=== PATIENT | male | born 1945 | race Caucasian/White ===

== ENCOUNTER 2020-04-22 10:59 | Outpatient (REF) | payer MEDICARE, OTHER, SELFPAY ==
[2020-04-22 13:38] LABS: Estimated Average Glucose 171 mg/dL; Hemoglobin A1c % 7.6 %
== END 2020-04-22 11:00 | disposition home or self-care (01) ==
LOC: HO.MANLR 10:59
PROVIDERS: PCP Internal Medicine; Visit Provider Internal Medicine
DX: E11.9 Type 2 diabetes mellitus without complications (principal)
CPT/HCPCS: 83036

== ENCOUNTER 2020-07-19 15:53 | Outpatient (REF) | payer MEDICARE, OTHER, SELFPAY ==
[2020-07-19 18:11] LABS: Estimated Average Glucose 189 mg/dL; Hemoglobin A1c % 8.2 %
== END 2020-07-19 15:54 | disposition home or self-care (01) ==
LOC: HO.MANLR 15:53
PROVIDERS: PCP Internal Medicine; Visit Provider Internal Medicine
DX: E11.9 Type 2 diabetes mellitus without complications (principal)
CPT/HCPCS: 36415; 83036

== ENCOUNTER 2020-10-05 09:18 | Outpatient (REF) | payer MEDICARE, OTHER, SELFPAY ==
[2020-10-05 12:04] LABS: Alanine Aminotransferase 19 U/L (0-40); Albumin Level 4.3 g/dL (3.5-5.0); Alkaline Phosphatase 43 U/L (39-117); Anion Gap 13 (12-20); Aspartate Amino Transferase 15 U/L (5-37); Bilirubin Total 1.1 mg/dL (0.0-1.0); Blood Urea Nitrogen 17 mg/dL (9-16); Calcium 9.7 mg/dL (8.4-10.2); Carbon Dioxide 27 mmol/L (22-29); Chloride 104 mmol/L (96-108); Cholesterol 136 mg/dL; Estimated Glomerular Filt Rate > 60; Glucose Fasting 151 mg/dL (60-99); HDL Cholesterol 45 mg/dL; LDL Cholesterol Calculated 74 mg/dl; Potassium 4.1 mmol/L (3.3-5.1); Sodium 140 mmol/L (135-145); Total Protein 6.4 g/dL (6.5-8.0); Triglycerides 85 mg/dL
[2020-10-05 12:08] LABS: Estimated Average Glucose 154 mg/dL
[2020-10-05 12:20] LABS: Creatinine Urine 76.62 mg/dL; Microalbum/Creatinine Ratio Ur 28.7 ug/mg cr
== END 2020-10-05 09:19 | disposition home or self-care (01) ==
LOC: HO.MANLDS 09:18
PROVIDERS: PCP Internal Medicine; Visit Provider Internal Medicine
DX: E11.9 Type 2 diabetes mellitus without complications (principal)
CPT/HCPCS: 36415; 80053; 80061; 82043; 83036

== ENCOUNTER 2021-07-21 11:39 | Outpatient (REF) | payer MEDICARE, OTHER, SELFPAY ==
[2021-07-21 13:54] LABS: Estimated Average Glucose 154 mg/dL
== END 2021-07-21 11:40 | disposition home or self-care (01) ==
LOC: HO.MANLDS 11:39
PROVIDERS: PCP Internal Medicine; Visit Provider Internal Medicine
DX: E11.9 Type 2 diabetes mellitus without complications (principal)
CPT/HCPCS: 36415; 83036

== ENCOUNTER 2021-10-23 11:34 | Outpatient (REF) | payer MEDICARE, OTHER, SELFPAY ==
[2021-10-23 14:17] LABS: Estimated Average Glucose 151 mg/dL; Hemoglobin A1c % 6.9 %
== END 2021-10-23 11:35 | disposition home or self-care (01) ==
LOC: HO.MANLDS 11:34
PROVIDERS: Visit Provider Internal Medicine
DX: E11.9 Type 2 diabetes mellitus without complications (principal)
CPT/HCPCS: 36415; 83036

== ENCOUNTER 2022-04-04 14:10 | Outpatient (REF) | payer MEDICARE, OTHER, SELFPAY ==
[2022-04-04 18:52] LABS: Estimated Average Glucose 151 mg/dL; Hemoglobin A1c % 6.9 %
[2022-04-04 18:56] LABS: Alanine Aminotransferase 15 U/L (0-40); Albumin Level 4.3 g/dL (3.5-5.0); Alkaline Phosphatase 59 U/L (39-117); Anion Gap 13 (12-20); Aspartate Amino Transferase 15 U/L (5-37); Bilirubin Total 0.8 mg/dL (0.0-1.0); Blood Urea Nitrogen 14 mg/dL (9-16); Carbon Dioxide 29 mmol/L (22-29); Chloride 104 mmol/L (96-108); Cholesterol 135 mg/dL; Estimated Glomerular Filt Rate > 60; Glucose Random 123 mg/dL (60-115); HDL Cholesterol 38 mg/dL; LDL Cholesterol Calculated 60 mg/dl; Potassium 4.6 mmol/L (3.3-5.1); Sodium 141 mmol/L (135-145); Total Protein 6.7 g/dL (6.5-8.0); Triglycerides 185 mg/dL
== END 2022-04-04 14:11 | disposition home or self-care (01) ==
LOC: HO.MANLDS 14:10
PROVIDERS: Visit Provider Internal Medicine
DX: E11.9 Type 2 diabetes mellitus without complications (principal)
CPT/HCPCS: 36415; 80053; 80061; 83036

== ENCOUNTER 2022-07-18 11:47 | Outpatient (REF) | payer MEDICARE, OTHER, SELFPAY ==
[2022-07-18 14:31] LABS: Estimated Average Glucose 163 mg/dL; Hemoglobin A1c % 7.3 %
== END 2022-07-18 11:48 | disposition home or self-care (01) ==
LOC: HO.MANLDS 11:47
PROVIDERS: Visit Provider Internal Medicine
DX: E11.9 Type 2 diabetes mellitus without complications (principal)
CPT/HCPCS: 36415; 83036

== ENCOUNTER 2023-01-04 11:14 | Outpatient (REF) | payer MEDICARE, OTHER, SELFPAY ==
[2023-01-04 13:56] LABS: Estimated Average Glucose 154 mg/dL
[2023-01-04 14:12] LABS: Alanine Aminotransferase 21 U/L (0-40); Albumin Level 4.1 g/dL (3.5-5.0); Alkaline Phosphatase 57 U/L (39-117); Anion Gap 15 (12-20); Aspartate Amino Transferase 15 U/L (5-37); Blood Urea Nitrogen 16 mg/dL (9-16); Calcium 9.9 mg/dL (8.4-10.2); Carbon Dioxide 29 mmol/L (22-29); Chloride 104 mmol/L (96-108); Estimated Glomerular Filt Rate > 60; Glucose Random 174 mg/dL (60-115); Potassium 4.5 mmol/L (3.3-5.1); Sodium 143 mmol/L (135-145); Total Protein 6.8 g/dL (6.5-8.0)
[2023-01-04 14:31] LABS: Bilirubin Total 0.8 mg/dL (0.0-1.0)
== END 2023-01-04 11:15 | disposition home or self-care (01) ==
LOC: HO.MANLDS 11:14
PROVIDERS: Visit Provider Internal Medicine
DX: E11.9 Type 2 diabetes mellitus without complications (principal)
CPT/HCPCS: 36415; 80053; 83036

== ENCOUNTER 2023-04-26 10:15 | Outpatient (REF) | payer MEDICARE, OTHER, SELFPAY ==
[2023-04-26 13:48] LABS: Estimated Average Glucose 160 mg/dL; Hemoglobin A1c % 7.2 % (<6.0)
[2023-04-26 13:59] LABS: Alanine Aminotransferase 22 U/L (0-40); Albumin Level 4.2 g/dL (3.5-5.0); Alkaline Phosphatase 52 U/L (39-117); Anion Gap 12 (12-20); Aspartate Amino Transferase 18 U/L (5-37); Bilirubin Total 0.9 mg/dL (0.0-1.0); Blood Urea Nitrogen 18 mg/dL (9-16); Calcium 9.7 mg/dL (8.4-10.2); Carbon Dioxide 26 mmol/L (22-29); Chloride 108 mmol/L (96-108); Cholesterol 136 mg/dL (<200); Estimated Glomerular Filt Rate > 60; Glucose Random 149 mg/dL (60-115); HDL Cholesterol 42 mg/dL (>40); LDL Cholesterol Calculated 76 mg/dL (<100); Potassium 3.9 mmol/L (3.3-5.1); Sodium 142 mmol/L (135-145); Total Protein 6.9 g/dL (6.5-8.0); Triglycerides 91 mg/dL (<150)
== END 2023-04-26 10:16 | disposition home or self-care (01) ==
LOC: HO.MANLDS 10:15
PROVIDERS: Visit Provider Internal Medicine
DX: E11.9 Type 2 diabetes mellitus without complications (principal)
CPT/HCPCS: 36415; 80053; 80061; 83036

== ENCOUNTER 2023-10-01 10:17 | Outpatient (REF) | payer MEDICARE, OTHER, SELFPAY ==
[2023-10-01 13:41] LABS: Estimated Average Glucose 160 mg/dL; Hemoglobin A1c % 7.2 % (<6.0)
== END 2023-10-01 10:18 | disposition home or self-care (01) ==
LOC: HO.MANLDS 10:17
PROVIDERS: Visit Provider Internal Medicine
DX: E11.9 Type 2 diabetes mellitus without complications (principal)
CPT/HCPCS: 36415; 83036

== ENCOUNTER 2025-01-27 19:19 | Outpatient (REF) | payer MEDICARE, OTHER, SELFPAY ==
--- OUTSIDE RECORDS SUMMARY | 2025-01-27 19:21 | XMS_ITS | Encounter Summary ---
Author Organization [facility] Address [address] [place] [address] [address] [place] [phone] Phone Care Team Providers Care Carbon Capture Power Plant Engineer Name Role Phone Pio Hendrickson DO Primary Care Provider [phone] Pio Hendrickson DO Primary Care Provider [phone] Encounter Details Date Type Department Care Team (Late st Contact Info) Description 08/11/2018 Procedure Pass OR Admitting Dept - Virtual Department [address] [place] [address] Social History Tobacco Use Types Packs/Day Years Used Date Smoking Tobacco: Former Cigarettes Q uit: 08/26/1980 Smokeless Tobacco: Never Comments:previously smoked 2 packs daily Alcohol Use Standard Drinks/Week Comments Yes 0 (1 standard drink = 0.6 oz pur e alcohol) rare beer Sex and Gender Information Value Date Recorded Sex Assigned at Male 08/26/2017 11:31 AM EDT Legal Sex Male 10:09 PM EDT Gender Identity Male 08/26/2017 11:31 AM EDT Sexual Orientation Straight 08/26/2017 11 :31 AM EDT Occupation Industry Job Start Date Job End Date Retired, 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 on file Not on ivory e Not on file documented as of this encounter Plan of Treatment Not on file documented as of this encounter Visit Diagnoses Not on filedocumented in this encounter Care Teams Carbon Capture Power Plant Engineer Relationship Specialty Start Date End Date Pio Hendrickson DO PCP - General Internal Medicine 4/9/18 8/20/25 Pio Hendrickson DO [address] [place] [address] [email or web address] PCP - General Internal Medicine 01/07/25 documented as of this encounter Additional Source Comments The information contained in this document represents components of the legal health record. It is not the complete legal health record.[facility]
--- OUTSIDE RECORDS SUMMARY | 2025-01-27 19:21 | XMS_ITS | Encounter Summary ---
Author Organization [facility] Address [address] [place] [address] Phone Care Team Providers Care Electronic Components Assembler Name Role Phone ClementPio amado Primary Care Provider [phone] Clementaneudy Pio Bhavni Primary Care Provider [phone] Reason for Referral * Outpatient Procedure - Closed Specialty Diagnoses / Procedures Referred By Michelle rollins Referred To Contact Diagnoses Atrial fibrillation, unspecified type Procedures MCT (Mobile Cardiac Telemetry) Deshaun Vogt MD Phone: tel: fax: Referral ID Status Reason Start Date Expiration Date Visits Re quested Visits Authorized [id number] Closed 01/30/2018 01/30/2019 1 1 Encounter Details Date Type Department Care Team (Latest Contact Info) Description 01/30/2018 Ancillary Orders [facility] [address] [facility] 3rd Floor, [address] [place] [address] Deshaun Vogt MD [address] [place] [address] Atrial fibrillation, unspecified type Social History Tobacco Use Types Packs/Day Years [...] Date Job End Date Retired, 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 Not on ivory e Not on file documented as of this encounter Plan of Treatment Not on file documented as of this encounter Results * MCT (Mobile Cardiac Telemetry) (01/28/2018 9:18 AM EDT) Anatomical Region Laterality Modality Heart Other Narrative 01/30/2018 2:20 PM EDT External cardiac ambulatory telemetry report Total time order 6 hours 12 minutes Average heart rate is 70 bpm Minimal heart rate 59 bpm Maximum heart rate 119 bpm in sinus tachycardia No atrial for ablation, atrial flutter or SVT No ventricular arrhythmias or heart pauses Occasional PACs and PVCs No patient activation of symptoms us Deshaun Vogt MD [facility] Final Result documented in this encounter Visit Diagnoses Diagnosis Atrial fibrillation, unspecified type Atrial fibrillation, unspecified type documented in this encounter Care Teams Electronic Components Assembler Relationship Specialty Start Date End Date Pio Hendrickson DO PCP - General Internal Medicine 08/26/17 01/06/25 Pio Hendrickson DO [address] [place] [id number] PCP - General Internal Medicine 01/07/25 documented as of this encounter Additional Source Comments The information contained in this document represents components of the legal health record. It is not the complete legal health record.[facility]
--- OUTSIDE RECORDS SUMMARY | 2025-01-27 19:22 | XMS_ITS | Clinical Summary ---
Author Organization [address] [place] [address] [place] [phone] Phone Care Team Providers Care Advertising Internship Name Role Phone Pio Hendrickson DO Primary Care Provider [phone] Allergies No known active allergies Medications exenatide microspheres 2 mg/0.85 mL auto-injector injection Inject into the skin. Active empagliflozin (Jardiance) 10 mg tablet Take by mouth 1 (one) time each day. Active MULTIVITAMIN ORAL 1 (one) time each day. Active L. rhamnosus GG/inulin ([facility] ORAL) Take by mouth 1 (one) time each day. Active aspirin 81 mg EC tablet Take 81 mg by mouth daily. 0 Active simvastatin (ZOCOR) 10 mg tablet Take 10 mg by mouth daily. 0 Active Eliquis 5 mg tablet TAKE 1 TABLET BY MOUTH TWICE A DAY 180 tablet 2 4 Active lisinopriL (PRINIVIL,ZESTRIL ) 2.5 mg tablet TAKE 1 TABLET BY MOUTH EVERY DAY 90 tablet 3 5 Active metoprolol succinate (TOPROL-XL) 100 mg 24 hr tablet TAKE 1.5 TABLETS BY MOUTH EVERY DAY 135 tablet 1 5 Active Active Problems Problem Noted Date Diagnosed Date Atrial fibrillation (CMS/HCC V24, CMS/HCC V28) 0 10/28/2020 Overview (02/18/2024): Last Assessment & Plan: Patient with a recent episode of atrial fibrillation lasting 1 hour and 45 minutes he was asymptomatic and occurred early in the morning may be sleep apnea associated patient remains chronically anticoagulated Assessment & Plan (08/19/2024 12:30 PM EDT): He has history of paroxysmal atrial fibrillation and continues on Eliquis for anticoagulation. We will continue with monitoring his device. Cardiomyopathy (CMS/HCC V24, CMS/HCC V28) 2020 Overview (02/18/2024): Last Assessment & Plan: Patient with a previous history of cardiomyopathy. Last EF on MRI 45% with no infiltrative myocarditis and no significant coronary disease other than the right coronary artery issue which cannot be approached by angioplasty secondary to his tortuosity. And small nature of the vessel continue present therapy Assessment & Plan (08/19/2024 12:30 PM EDT): Patient has history of cardiomyopathy with an EF of 35% in the past. He has a Medtronic MRI compatible biventricular ICD in place. He had a cardiac MRI in 2019 which showed an EF of 45% with no infiltrative disease. His last echocardiogram 08/2022 showed recovery of his LVEF to 55 to 60%. He continues on medical therapy and denies any clinical symptoms of heart failure. He is euvolemic on physical examination. He will continue on metoprolol, low-dose of lisinopril and Jardiance as prescribed. His blood pressure does not allow for any further medication titration. Patient advised to seek emergency medical attention by calling 911 if they were to develop severe dyspnea, chest pain that did not resolve with rest or nitroglycerin, or if they were to faint. I've asked the patient to call if they develop worsening symptoms of heart failure such as increased shortness of breath, new or worsening cough, increased swelling in the legs or ankles, or weight gain of more than 2 pounds in one day or 4 pounds in one week. Coronary artery disease 10/28/2020 Overview (02/18/2024): Last Assessment & Plan: Patient with a history of episodic coronary disease residual 80% lesion and a small right coronary artery which is cause no issues since the diagnostic catheterization in 2019. Patient will continue on risk factor modification. Assessment & Plan (08/19/2024 12:30 PM EDT): Patient has history of mild coronary artery disease as outlined in detailed and his coronary angiogram completed in 2019. Denies any exertional anginal symptoms. He continues on cardioprotective medical therapy with aspirin, beta-concetta and statin. I have reviewed with the patient the importance of a heart healthy lifestyle which includes eating a low-fat low-salt diet, getting regular exercise, maintaining a healthy weight, not smoking, and following up with routine medical care. Ventricular tachycardia (CMS/HCC V24, CMS/HCC V2 8) 10/28/2020 Overview (02/18/2024): Last Assessment & Plan: No further episodes of ventricular tachycardia identified on interrogation of his ICD Assessment & Plan (08/19/2024 12:30 PM EDT): Patient has history of nonsustained ventricular tachycardia captured on device monitoring in the past. No recent episodes noted. He continues on metoprolol. Encounters Date Type Department Care Team Description 01/19/2025 10:15 AM EDT Ancillary Procedure [facility] [address] [place] [address] 12/17/2024 2:15 AM EDT Ancillary Procedure [facility] [address] [place] [address] 11/23/2024 7:10 AM EDT Ancillary Procedure [facility] [address] [place] [address] from Last 3 Months Social History Tobacco Use Types Packs/Day Years Used Date Smoking Tobacco: Former Cigarettes Q uit: 05/20/1980 Smokeless Tobacco: Never Tobacco Cessation:Counseling Given: Not Answered Alcohol Use Standard Drinks/Week Comments Yes 0 (1 standard drink = 0.6 oz pur e alcohol) Sex and Gender Information Value Date Recorded Sex Assigned at Not on file Legal Sex Male 11:10 AM EST Gender Identity Not on file Sexual Orientation Not on file Obstetrics History Last Filed Vital Signs Vital Sign Reading Time Taken Comments Blood Pressure 102/60 08/19/2024 10:53 AM EDT Pulse 72 08/19/2024 10:53 AM EDT Temperature - - Respiratory Rate - - Oxygen Saturation 97% 08/19/2024 10:53 AM EDT Inhaled Oxygen Concentration - - Weight 78.2 kg (172 lb 4.8 oz) 08/19/2024 10:53 AM EDT Height 175.3 cm (5' 9 ) 08/19/2024 10:53 AM EDT Body Mass Index 25.44 08/19/2024 10:53 AM EDT Plan of Treatment Upcoming Encounters Date Type Department Care Team (Late st Contact Info) Description 03/29/2025 9:30 AM EST Ancillary Procedure [facility] [address] [place] [phone] 05/07/2025 10:40 AM EST Office Visit [facility] [address] [place] [address] [address] [place] [phone] Katerina Chan NP [address] [place] [address] [address] [place] [phone] Health Maintenance Due Date Last Done Comments Diabetes: Annual Foot Exam 1955 Diabetes: Annual Retina Eye Exam 1955 DTaP,Tdap,and Td Vaccines (1 - Tdap) 1963 Zoster Vaccines (1 of 2) 1963 RSV Immunization Adult Patients (1 - 1-dose 75+ series) 2019 Pneumococcal Vaccine: 50+ Years (2 of 2 - PPSV23) 06/22/2020 04/27/2020 Falls Risk Assessment 04/28/2022 Medicare Annual Wellness Visit 04/28/2022 Social Influencers of Health Screening 04/28/2022 Diabetes: Annual Urine Albumin-Creatinine Ratio (uACR) 03/26/2024 07/03/2018 Diabetes: Blood Sugar Control Test (HGBA1C) 03/26/2024 Depression Screening 05/20/2024 Diabetes: Annual GFR (Glomerular Filtration Rate) 01/12/2025 01/13/2024, 02/18/2020, 12/10/2017 Hypertension/CHF/CAD Annual BMP Blood Test 01/12/2025 01/13/2024, 02/18/2020, 12/10/2017 COVID-19 Vaccine ( season) 2025 03/22/2022, 03/24/2021, 08/10/2020, Additional history exists Influenza Vaccine (#1) 2025 , 03/27/2023, 02/26/2022, Additional history exists Cholesterol Screening (Lipid Panel) 01/12/2029 01/13/2024 HIB Vaccines Aged Out No longer eligi ble based on patient's age to complete this topic HPV Vaccines Aged Out No longer eligi ble based on patient's age to complete this topic Hepatitis A Vaccines Aged Out No long er eligible based on patient's age to complete this topic Hepatitis B Vaccines Aged Out No long er eligible based on patient's age to complete this topic IPV Vaccines Aged Out No longer eligi ble based on patient's age to complete this topic MMR Vaccines Aged Out No longer eligi ble based on patient's age to complete this topic Meningococcal ACWY Vaccine Aged Out N o longer eligible based on patient's age to complete this topic Meningococcal B Vaccine Aged Out No l onger eligible based on patient's age to complete this topic RSV Immunization Patients Under 20 months Aged Out No longer eligible based on patient's age to complete this topic Varicella Vaccines Aged Out No longer eligible based on patient's age to complete this topic Medical Devices Implanted Type Area Senior Program Manager Device Identifier Shelf Expiration Date Model / Serial / Lot Cardiac Parlor Chaperone-D Icd-04/01/2020 Implanted:03/20 by Elizabeth Ching MD (Quantity not on file) Cardiac SHREDDER OPERATOR-D ICD Left: Chest MEDTR[employer]IC - CARDIAC RHYTH-CRDM CLARIA QUAD [id number] / [id number] S / Medt-Card Claria Mri Quad Crtd [id number] Implanted:03/20 (Quantity not on file) Cardiac SHREDDER OPERATOR-D ICD MEDTRONIC - CARDIAC RHYTH-CRDM CLARIA MRI QUAD CRTD [id number] / [id number] S / Procedures Procedure Name Priority Date/Time Associated Diagnosis Comments CARDIAC DEVICE CHECK- REMOTE- MURJ Routine 01/19/2025 10:14 AM EDT CARDIAC DEVICE CHECK- REMOTE- MURJ Routine 12/17/2024 2:11 AM EDT CARDIAC DEVICE CHECK- REMOTE- MURJ Routine 11/23/2024 7:08 AM EDT ANNUAL BMP BLOOD TEST Routine 02/18/2020 from Last 3 Months or Most Recently Relevant to Health Maintenance Results * Cardiac device check - Remote- MURJ (01/19/2025 10:14 AM EDT) Only the most recent of3 resultswithin the time period is included. Date Time Interrogation Session [id number] CV DEVICE CHECK Type Interrogation Session Remote CV DEVICE CHECK Implantable Pulse Generator Senior Program Manager MDT CV DEVICE CHECK Implantable Pulse Generator Type SHREDDER OPERATOR-D CV DEVICE CHECK Implantable Pulse Generator Model Claria MRI Quad CRTD [id number] CV DEVICE CHECK Implantable Pulse Generator Serial Number [id number] CV DEVICE CHECK Implantable Pulse Generator Implant Date 20200401 CV DEVICE CHECK Battery Remaining Longevity 25.0 CV DEVICE CHECK Battery Voltage 2.930 CV D EVICE CHECK Battery PROCESS STRIPPER Trigger 2.727 CV DEVICE CHECK Battery Status Middle of Service CV DEVICE CHECK Capacitor Charge Time 4.314 CV DEVICE CHECK Edgar Statistic RA Percent Paced 3.65 CV DEVICE CHECK Atrial Tachy Statistic AT/AF [place] Percent 0.00 CV DEVICE CHECK Lead Channel Sensing Intrinsic Amplitude 3.875 CV DEVICE CHECK Lead Channel Setting Sensing Sensitivity 0.30 CV DEVICE CHECK Lead Channel Impedance Value 475 CV DEVICE CHECK Lead Channel Pacing Threshold Amplitude 1.000 CV DEVICE CHECK Lead Channel Pacing Threshold Pulse Width 0.4 CV DEVICE CHECK Lead Channel RA Pacing Threshold Date 2025-01-12 CV DEVICE CHECK Lead Channel Setting Pacing Amplitude 2.000 CV DEVICE CHECK Lead Channel Setting Pacing Pulse Width 0.4 CV DEVICE CHECK Lead Channel Sensing Intrinsic Amplitude 7.625 CV DEVICE CHECK Lead Channel Setting Sensing Sensitivity 0.30 CV DEVICE CHECK Lead Channel Impedance Value 399 CV DEVICE CHECK Lead Channel Pacing Threshold Amplitude 0.875 CV DEVICE CHECK Lead Channel Pacing Threshold Pulse Width 0.4 CV DEVICE CHECK Lead Channel RV Pacing Threshold Date 2025-01-12 CV DEVICE CHECK Lead Channel Setting Pacing Amplitude 2.000 CV DEVICE CHECK Lead Channel Setting Pacing Pulse Width 0.4 CV DEVICE CHECK Lead Channel Impedance Value 608 CV DEVICE CHECK Lead Channel Pacing Threshold Amplitude 1.625 CV DEVICE CHECK Lead Channel Pacing Threshold Pulse Width 0.4 CV DEVICE CHECK Lead Channel Pacing Threshold Date 2025-01-12 CV DEVICE CHECK Lead Channel Setting Pacing Amplitude 2.250 CV DEVICE CHECK Lead Channel Setting Pacing Pulse Width 0.4 CV DEVICE CHECK Edgar Setting Mode (NBG Code) DDD CV DEVICE CHECK Ventricular chambers paced during SHREDDER OPERATOR pacing. BiV CV DEVICE CHECK Edgar Setting Lower Rate Limit 60 CV DEVICE CHECK Edgar Setting AT Mode Switch Rate 171 CV DEVICE CHECK Edgar Setting Maximum Tracking Rate 130 CV DEVICE CHECK Edgar Setting Maximum Sensor Rate 120 CV DEVICE CHECK Edgar Setting PAV Delay 170 CV DEVICE CHECK Edgar Setting DOMINGO Delay 140 CV DEVICE CHECK SHREDDER OPERATOR LV-RV Delay 0 CV D EVICE CHECK Therapy Statistic Recent Shocks Delivered 0 CV DEVICE CHECK Therapy Statistic Recent Shocks Aborted 0 CV DEVICE CHECK Therapy Statistic Recent ATP Delivered 0 CV DEVICE CHECK RV HV Impedance 73 CV D EVICE CHECK Zone Setting Type Category AT/AF CV DEVICE CHECK Rate 171 CV DEVICE CHECK Therapies All Rx Off CV DEVICE CHECK Zone Setting Status Monitor CV DEVICE CHECK Zone ID 2 CV DEVICE CHECK Zone Setting Type Category VF CV DEVICE CHECK Rate 200 CV DEVICE CHECK Therapies ATP During Charging, 35Jx6 CV DEVICE CHECK Zone Setting Status On CV DEVICE CHECK Zone ID 3 CV DEVICE CHECK Zone Setting Type Category VT CV DEVICE CHECK Zone Setting Status Off CV DEVICE CHECK Zone ID 4 CV DEVICE CHECK Zone Setting Type Category VT CV DEVICE CHECK Zone Setting Status Off CV DEVICE CHECK Zone ID 5 CV DEVICE CHECK Zone Setting Type Category VT CV DEVICE CHECK Rate 150 CV DEVICE CHECK Rate 167 CV DEVICE CHECK Zone Setting Status ENABLED CV DEVICE CHECK Zone ID 6 CV DEVICE CHECK Date of Service 2025-01-17 CV DEVICE CHECK Anatomical Region Laterality Modality Device Interroga tion 01/13/2025 12:1 7 AM EDT Impressions 01/19/2025 10:03 AM EDT Heart Failure Diagnostic: Stable * Heart failure diagnostics assessed through the device * Status: Stable * No overt HF present Narrative Procedure Note Elizabeth Ching MD - 01/19/2025 IMPRESSION: Heart Failure Diagnostic: Stable * Heart failure diagnostics assessed through the device * Status: Stable * No overt HF present Elizabeth Ching MD CV IMPLANTABLE CARDIAC DEV ICE PROCEDURES Final Result * Annual BMP Blood Test (02/18/2020) Annual BMP Blood Test abstracted Historical Provider HEALTH MAINTENANCE Final Result from Last 3 Months or Most Recently Relevant to Health Maintenance Insurance MEDICARE [facility] Care Teams Advertising Internship Relationship Specialty Start Date End Date Pio Hendrickson DO [address] [facility] [address] [place], [place] PCP - General Internal Medicine 04/10/20
--- OUTSIDE RECORDS SUMMARY | 2025-01-27 19:22 | XMS_ITS | Encounter Summary ---
Author Organization [facility] Address [address] [place] [address] Phone Care Team Providers Care Asp Net Mvc Developer Name Role Phone Pio Hendrickson DO Primary Care Provider [phone] Pio Hendrickson DO Primary Care Provider [phone] Encounter Details Date Type Department Care Team ([facility] st Contact Info) Description 04/09/2022 Transcribe Orders Virtual Department [address] [place] [address] Pio Hendrickson DO [address] [facility] [place] [address] [place] [address] Other acquired deformities of right foot (Primary Dx) Social History Tobacco Use Types Packs/Day Years Used Date Smoking Tobacco: Former Cigarettes 2 24 0 08/26/1956 - 08/26/1980 Smokeless Tobacco: Never Comments:previously smoked 2 packs daily Alcohol Use Standard Drinks/Week Comments Not Currently 0 (1 standard drink = 0.6 oz pur e alcohol) 1 drink a month at most Sex and Gender Information Value Date Recorded Sex Assigned at Male 08/26/2017 11:31 AM EDT Legal Sex Male 10:09 PM EDT Gender Identity Male 08/26/2017 11:31 AM EDT Sexual Orientation Straight 08/26/2017 11 :31 AM EDT Occupation Industry Job Start Date Job End Date Retired, 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 No acute osseous abnormality. Narrative 04/24/2022 5:41 PM EST XR FOOT 3 OR MORE VIEWS (RIGHT) COMPARISON: No relevant comparison. FINDINGS: No fracture or dislocation. Hammertoe deformity of the second through fifth digits, limiting assessment on nonweightbearing views. Mild scattered degenerative change. Vascular calcifications. Distal Achilles enthesopathy and plantar calcaneal spur. Procedure Note Amadou Gandara MD - 04/24/2022 XR FOOT 3 OR MORE VIEWS (RIGHT) COMPARISON: No relevant comparison. FINDINGS: No fracture or dislocation. Hammertoe deformity of the second throughfifth digits, limiting assessment on nonweightbearing views. Mildscattered degenerative change. Vascular calcifications. Distal Achillesenthesopathy and plantar calcaneal spur. IMPRESSION: Multiple chronic findings, as described. No acute osseous abnormality. Pio Hendrickson DO IMG XR LOWER EXTREMITY Final Res ult documented in this encounter Visit Diagnoses Diagnosis Other acquired deformities of right foot- Primary Other acquired deformities of right foot documented in this encounter Care Teams Asp Net Mvc Developer Relationship Specialty Start Date End Date Pio Hendrickson DO [email or web address] PCP - General Internal Medicine 08/26/17 01/06/25 Pio Hendrickson DO [address] [place] [address] [email or web address] PCP - General Internal Medicine 01/07/25 documented as of this encounter Additional Source Comments The information contained in this document represents components of the legal health record. It is not the complete legal health record.[facility]
--- OUTSIDE RECORDS SUMMARY | 2025-01-27 19:22 | XMS_ITS | Encounter Summary ---
Author Organization [facility] Address [address] [place] [address] Phone Care Team Providers Care Grinding Machine Operator Automatic Name Role Phone ClementPio amado Primary Care Provider [phone] ClementPio amado Primary Care Provider [phone] Encounter Details Date Type Department Care Team (Late st Contact Info) Description 01/04/2025 Procedure Pass [facility], Ct Scan - [facility] [address] [place] [address] Social History Tobacco Use Types Packs/Day Years Used Date Smoking Tobacco: Former Cigarettes 2 24 0 08/26/1956 - 08/26/1980 Smokeless Tobacco: Never Comments:previously smoked 2 packs daily Alcohol Use Standard Drinks/Week Comments Not Currently 0 (1 standard drink = 0.6 oz pur e alcohol) 1 drink a month at most Education Answer Date Recorded Are you interested in more education? Not on ivory e 09/14/2022 Are you concerned about learning? Not on file 09/14/2022 No 09/14/2022 No 09/14/2022 Digital Access Answer Date Recorded No 10/13/2022 No 10/13/2022 No 10/13/2022 Reliable internet access at home? Not on file 10/13/2022 Device with a working camera? Not on file Intimate Partner Violence Answer Date R ecorded Are you denied basic needs s uch as food, clothing, or medical care? No 01/04/2025 In the past 12 months have y ou been in a relationship with a person who hurts, threatens, or tries to control you? No 01/04/2025 Are you denied basic needs s uch as food, clothing, or medical care? No 01/04/2025 In the past 12 months have y ou been in a relationship with a person who hurts, threatens, or tries to control you? 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 Wish to be (Past 1 Month) No 01/04/2025 11:42 AM EDT Cammie Shepherd RN 2. Non-Specific Active Suici tin Thoughts (Past 1 Month) No 01/04/2025 11:42 AM EDT Yumiko Shepherd cia, RN 6. Suicidal Behavior (Lifetime) No 11:42 AM Cammie Bernardo RN documented as of this encounter Plan of Treatment Not on file documented as of this encounter Visit Diagnoses Not on filedocumented in this encounter Care Teams Grinding Machine Operator Automatic Relationship Specialty Start Date End Date Pio Hendrickson DO PCP - General Internal Medicine 08/26/17 01/06/25 Pio Hendrickson DO [address] [place] [address] PCP - General Internal Medicine 01/07/25 documented as of this encounter Additional Source Comments The information contained in this document represents components of the legal health record. It is not the complete legal health record.[facility]
--- OUTSIDE RECORDS SUMMARY | 2025-01-27 19:22 | XMS_ITS | Encounter Summary ---
Author Organization [facility] Address [address] [place] [phone] Phone Care Team Providers Care Pocket Creaser Name Role Phone Pio Hendrickson DO Primary Care Provider [phone] Pio Hendrickson DO Primary Care Provider [phone] Encounter Details Date Type Department Care Team (Late st Contact Info) Description 12/20/2021 Transcribe Orders Virtual Department [address] [place] [address] Pio Hendrickson DO [address] [facility] [place] [address] [place] [address] [email or web address] Right shoulder pain, unspecified chronicity (Primary Dx) Social History Tobacco Use Types [...] Date Job End Date Retired, 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 Mild to moderate degenerative changes at the acromioclavicular joint. Narrative 12/21/2021 4:57 PM EDT XR SHOULDER 2 OR MORE VIEWS (RIGHT) COMPARISON: There are no prior studies available for comparison FINDINGS: No fracture. There is mild glenohumeral joint space narrowing with osteophyte formation. Mild to moderate degenerative changes at the acromioclavicular articulation. The humeral head continues to articulate normally with the glenoid. Procedure Note Shefali Youssef MD - 12/21/2021 XR SHOULDER 2 OR MORE VIEWS (RIGHT) COMPARISON: There are no prior studies available for comparison FINDINGS: No fracture. There is mild glenohumeral joint space narrowing withosteophyte formation. Mild to moderate degenerative changes at theacromioclavicular articulation. The humeral head continues to articulatenormally with the glenoid. 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 Mild to moderate degenerativechanges at the acromioclavicular joint. Pio Hendrickson DO IMG XR UPPER EXTREMITY Final Res ult documented in this encounter Visit Diagnoses Diagnosis Right shoulder pain, unspecified chronicity- Primary Right shoulder pain, unspecified chronicity documented in this encounter Care Teams Pocket Creaser Relationship Specialty Start Date End Date Pio Hendrickson DO PCP - General Internal Medicine 08/26/17 01/06/25 Pio Hendrickson DO [address] [place] [phone] [email or web address] PCP - General Internal Medicine 01/07/25 documented as of this encounter Additional Source Comments The information contained in this document represents components of the legal health record. It is not the complete legal health record.[facility]
--- OUTSIDE RECORDS SUMMARY | 2025-01-27 19:22 | XMS_ITS | Clinical Summary ---
Author Organization [facility] Address [address] [place] [address] Phone Care Team Providers Care Broadcast Transmitter Operator Name Role Phone Pio Hendrickson Primary Care Provider [phone] Allergies No known active allergies Medications metFORMIN (GLUCOPHAGE) 1000 MG tablet Take 1,000 mg by mouth 2 (two) times a day with meals. Active lactobacillus rhamnosus GG-inulin (CULTURELLE PROBIOTIC) 10 billion cell -200 mg CpSP Take 200 mg by mouth daily. Active lisinopril (PRINIVIL,ZESTRIL ) 2.5 MG tablet Take 1 tablet (2.5 mg total) by mouth daily. 90 tablet 1 8 Active ELIQUIS 5 mg tabletIndications :LBBB (left bundle branch block) TAKE 1 TABLET BY MOUTH TWICE A DAY. 180 tablet 3 8 Active simvastatin (ZOCOR) 10 MG tablet take 1 po qd Active aspirin 81 MG EC tablet Take 81 mg by mouth daily. Active dulaglutide (TRULICITY) 0.75 mg/0.5 mL subcutaneous injection Inject 0.75 mg under the skin every 7 days. Active metoprolol succinate (TOPROL-XL) 100 MG 24 hr tablet Take 150 mg by mouth daily. Active acetaminophen (TYLENOL) 500 MG tablet Take 2 tablets (1,000 mg total) by mouth every 8 (eight) hours as needed for pain (specific location in comments). 0 0 Active tamsulosin (FLOMAX) 0.4 mg Cap Take 2 capsules (0.8 mg total) by mouth nightly at bedtime. 180 capsule 0 Active cefpodoxime (VANTIN) 200 MG tablet Take 1 tablet (200 mg total) by mouth 2 (two) times a day for 7 days. 14 tablet 5 01/12/20 25 Active Problems Problem Noted Date Diagnosed Date BPH with urinary obstruction 02/17/2020 Assessment & Plan (02/18/2020 11:37 AM EDT): Status post TURP 02/[address] Wilkerson Tolerated CBI overnight, stable this morning, normal labs and vital signs. Cleared for discharge by urology Follow-up with urologist in office in [address] Wilkerson's instruction Patient instructed on signs and symptoms to monitor for Instructed to resume Flomax by urologist History of BPH 02/17/2020 Acute renal failure 12/19/2019 Lower obstructive uropathy 12/18/2019 Assessment & Plan (12/18/2019 3:28 PM EDT): -Urinary retention due to BPH. Olsen placed. Patient already on Flomax but will increase dose to 0.8. -Urology consulted. Suggest outpatient follow-up patient will probably need TURP -LAXMI improving we will continue IV fluid recheck level tomorrow. Suspect will probably be able to discharge tomorrow -Check renal ultrasound -Patient treated with antibiotics as an outpatient but appears treatment based on urine analysis he has received about 7 days of antibiotics. 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 fib, chronic systolic CHF -Continue usual e eliquis, stop ASA -NO indication for both -Continue metoprolol, Simvastatin -Lisinopril held due to LAXMI LBBB (left bundle branch block) 09/10/2017 Assessment & Plan (09/10/2017 7:58 PM EDT): Diagnosed on EKG in 08/2017. Echo completed with EF decreased at 30%. Will be following up with Dr. Vogt. Typical atrial flutter 09/10/2017 Assessment & Plan (10/27/2017 4:08 PM EDT): - Will be having aflutter ablation in November after he returns from his trip. - He will have preprocedure labs completed when they return. - He reports that he has an adequate supply of eliquis for the trip. CHADS-VASc score - 4 (age, HTN, HF, DM) - Continue on metoprolol, eliquis. - He will follow up in the office after ablation on 12/09/[address] Vogt. Questions were also answered regarding the procedure in the visit today. - He is aware to call with questions or concerns prior to the next visit. Assessment & Plan (09/10/2017 8:02 PM EDT): Continues in atrial flutter, rate controlled. Feels well and is tolerating his usual activities. Continue on metoprolol, eliquis. BP controlled today. He will be following up with Dr. Vogt for ablation in November. Pre-procedure labs ordered. He will follow up in the office prior to his trip in October for continued management. Ischemic cardiomyopathy 09/10/2017 Assessment & Plan (02/18/2020 11:38 AM EDT): Patient follows with Dr. Vernon Is due for echocardiography next week, he will follow-up as outpatient No signs or symptoms of volume overload, dyspnea or chest pain Continue home meds including beta-concetta and aspirin, he is not on diuretic therapy Assessment & Plan (10/27/2017 4:06 PM EDT): - Etiology unclear, likely will need further workup after ablation - Appears euvolemic on exam today. S&S of heart failure reviewed again with patient and his . - Tolerating low dose lisinopril. Continue with rate control, BP control. -BP within range in office today. - Follow up with Dr. Vogt on 12/09/17 after ablation. Assessment & Plan (09/11/2017 10:39 PM EDT): EF 30-40% during last echo. Nuclear stress test showing dilated L ventricular cavity with an inferioapical infarct. Septal and apical hypokinesis. States felt symptomatic while in atrial flutter initially, so unclear how long had been in this rhythm. Will discuss with cardiology team regarding additional investigation into type of cardiomyopathy. Euvolemic on exam today - will not add lasix at this time. BPs at home reported in 110s generally and is a potential falls risk. Will discuss about adding lisinopril during next visit and with cardiology team. Educated patient and his about S&S heart failure, symptoms to report, continued monitoring. 09/11/17 - discussion with Dr. Vogt regarding management - will add 2.5 mg lisinopril PO daily to medication regimen. Recheck labs after initiation of medication. Dry mouth 09/10/2017 Assessment & Plan (09/10/2017 8:12 PM EDT): Reporting today and noted dry mouth on exam. States has started after recent hospitalization and addition of new medications. Will research further into potential side effects from his current cardiac medications. In the meantime, recommended using OTC Biotene mouth spray to assist with these symptoms. Non-Hodgkin's lymphoma 07/17/2017 Benign prostatic hyperplasia Assessment & Plan (08/26/2017 5:05 PM EDT): Continue tamsulosin Type 2 diabetes mellitus wit hout complication, without long-term current use of insulin Assessment & Plan (02/18/2020 11:37 AM EDT): Resume home regimen including Trulicity and metformin. Glucoses stable during hospitalization Assessment & Plan (12/18/2019 3:32 PM EDT): Following Accu-Cheks, metformin Januvia held due to LAXMI. Trulicity nonformulary. Sliding scale ordered. Adjust meds if needed based on glucose levels Assessment & Plan (08/27/2017 4:32 PM EDT): Metformin and Januvia on hold. Weight-based Lantus stared at admission (21u qhs) still with elevated BS Plan: -Increase to 25u qhs tonight and continue LDSS -Accucheck QID Pure hypercholesterolemia Assessment & Plan (08/26/2017 5:08 PM EDT): Continue statin. Resolved Problems Problem Noted Date Diagnosed Date Resolved Date Tachycardia 08/26/2017 08/28/2017 Assessment & Plan (08/27/2017 4:35 PM EDT): Tachycardia with ventricular rate as fast as 225 bpm documented in ED. Determined to be Aflutter with bundle branch block and RVR. Patient was given amiodarone 150 mg IV 1 and amiodarone drip initiated. This was changed to PO metoprolol BID and patient was started on Eliquis for anticoagulation. Echo today shows EF of 30%, concerning for ischemia. Cardiology recommends nuc stress. Additionally, there was some concern about dilated RV on his echo but Ddimer neg, low suspicion for PE. Plan: -Continue Eliquis -Continue metoprolol -Appreciate cardiology recs Encounters Date Type Department Care Team Description 01/20/2025 6:08 PM EDT - 01/20/2025 11:59 PM EDT Hospital Encounter [facility] [address] [place] [address] Pio Hendrickson, DO Discharge Disposition: Home or Self Care 01/20/2025 Transcribe Orders [facility] [address] [place] [address] Pio Hendrickson, DO Gross hematuria (Primary Dx) 01/06/2025 11:13 AM EDT - 01/06/2025 11:59 PM EDT Hospital Encounter [facility] [address] [place] [address] Pio Hendrickson, DO Discharge Disposition: Home or Self Care 01/04/2025 11:52 AM EDT - 01/04/2025 5:50 PM EDT Emergency [facility] [address] [place] [address] Discharge Disposition: Home or Self Care 01/04/2025 Procedure Pass [facility], Ct Scan - [facility] [address] [place] [address] from Last 3 Months Immunizations Immunization Administration Dates Next Due Influenza, Unspecified Formulation 02/15/2020 Family History Medical History Relation Comments Bladder Cancer Father Peripheral Arterial Disease Father Pancreatic cancer Sister Relation Status Comments Father Mother Mother age 99 but multiple family members on mother's side had heart disease, in 40s Sister Social History Tobacco Use Types Packs/Day Years [...] Date Job End Date Retired, 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 Not on file Not on ivory e Not on file Last Filed Vital Signs Vital Sign Reading Time Taken Comments Blood Pressure 117/72 01/04/2025 5:44 PM EDT Pulse 82 01/04/2025 5:44 PM EDT Temperature 35.6 C (96.1 F) 01/04/2025 5:44 PM EDT Respiratory Rate 18 01/04/2025 5:44 PM EDT Oxygen Saturation 98% 01/04/2025 5:44 PM EDT Inhaled Oxygen Concentration - - Weight 79.4 kg (175 lb) 01/04/2025 11:41 AM EDT Height 172.7 cm (5' 8 ) 01/04/2025 11:41 AM EDT Body Mass Index 26.61 01/04/2025 11:41 AM EDT Plan of Treatment Health Maintenance Due Date Last Done Comments Adult Td,Tdap Booster 1944 BLOOD PRESSURE 1944 DEPRESSION SCREENING 1956 SMOKING Hx and SMOKELESS TOBACCO SCREENING 1957 ZOSTER VACCINES (1 of 2) 1963 DIABETIC EYE EXAM 08/26/2017 RSV VACCINE (1 - 1-dose 75+ series) 2019 INFLUENZA VACCINE (#1) 2024 , 03/01/2021, 02/22/2021, Additional history exists LIPID PANEL 01/12/2025 01/13/2024, 06/20, 08/27/2017 COVID-19 VACCINE ( season) 2025 03/22/2022, 03/24/2021, 03/24/2021, Additional history exists HEMOGLOBIN A1C 07/09/2025 01/06/2025, 05/0 11/2024, 06/05/2024, Additional history exists CREATININE LEVEL 01/04/2026 01/04/2025, , 02/18/2020, Additional history exists POTASSIUM LEVEL 01/04/2026 01/04/2025, 0810/2023, 02/18/2020, Additional history exists PNEUMOCOCCAL VACCINES (50+ years) Completed 04/27/2020, 11/06/2010 HEPATITIS A VACCINES Aged Out No long er eligible based on patient's age to complete this topic HIB VACCINES Aged Out No longer eligi ble based on patient's age to complete this topic MENINGOCOCCAL VACCINES (ACWY) Aged Out No longer eligible based on patient's age to complete this topic MENINGOCOCCAL VACCINES (B) Aged Out N o longer eligible based on patient's age to complete this topic Medical Devices Implanted Type Area Endocrinology Teacher Device Identifier Shelf Expiration Date Model / Serial / Lot Mesh Synthetic 10cmx2.54 Abdominal Non Absorbable Rectangle Polypropylene Prolene Bx/6ea - [id number] Implanted:Qty: 1 on 08/11/2018 by Dillon Higginbotham MD at [facility] [employer] / DIVISION OF J 01/17/2023 [id number] / / [id number] Procedures Procedure Name Priority Date/Time Associated Diagnosis Comments NON-TECHNICAL ACCOUNT REPRESENTATIVE CYTOLOGY, URINE/URINARY TRACT Routine 01/20/2025 6:23 PM EDT Gross hematuria HEMOGLOBIN A1C Routine 01/06/2025 11:13 AM EDT Routine general medical examination at a [facility] care facility Type 2 diabetes mellitus without complication, unspecified whether jail insulin use Encounter for screening for cardiovascular disorders CT ABDOMEN/PELVIS WITH CONTRAST Routine 01/04/2025 3:15 PM EDT LIPASE STAT 01/04/2025 12:08 PM EDT LFTS (HEPATIC PANEL) STAT 01/04/2025 12:08 PM EDT BASIC METABOLIC PANEL STAT 01/04/2025 12:08 PM EDT CBC AND DIFFERENTIAL STAT 01/04/2025 12:08 PM EDT URINE SEDIMENT STAT 01/04/2025 11:48 AM EDT URINALYSIS W/REFLEX URINE CULTURE STAT 01/04/2025 11:48 AM EDT URINE CULTURE Routine 01/04/2025 11:48 AM EDT LIPID PANEL Routine 01/13/2024 10:33 AM EDT Routine general medical examination at a health care facility Type 2 diabetes mellitus without complication, unspecified whether intermediate manager insulin use Encounter for screening for cardiovascular disorders from Last 3 Months or Most Recently Relevant to Health Maintenance Results * (ABNORMAL) Hemoglobin A1c (01/06/2025 11:13 AM EDT) HEMOGLOBIN A1C 7.7(H) 4.3 - 5.8 % [facility] Blood 01/06/2025 11:1 3 AM EDT 01/06/2025 11:15 AM EDT us Pio A Bigda DO LAB BLOOD ORDERABLES Final Resul t [address] [address] * CT ABDOMEN/PELVIS WITH CONTRAST (01/04/2025 3:15 PM EDT) Anatomical Region Laterality Modality Abdomen, Pelvis Computed Tomogra phy 01/04/2025 3:21 PM EDT Impressions 01/04/2025 3:29 PM EDT [ 1. No acute abnormality in the abdomen or pelvis. 2. Colonic Diverticulosis without Diverticulitis. 3. Mild Prostatomegaly. Narrative 01/04/2025 3:[address] ABDOMEN/PELVIS WITH CONTRAST Referring clinician's provided indication for this examination in Epic: * Hematuria, unknown cause TECHNIQUE: Multidetector-row CT of the abdomen and pelvis was performed after administration of intravenous contrast using tailored dose modulation techniques. Images were reconstructed in the axial, coronal, and sagittal planes. COMPARISON: None available. FINDINGS: Lower Chest: No consolidation or pleural effusions. Mild circumferential wall thickening of the distal esophagus. Liver: No focal lesions. Biliary: Normal gallbladder. No biliary ductal dilatation. Spleen: No splenomegaly or focal lesions. Pancreas: No ductal dilatation. There is a 1.2 cm hypodensity in the pancreatic body likely a side branch IPMN Adrenal Glands: No nodules. Kidneys/Ureters: Hypodense lesions in bilateral kidneys, likely cysts. No solid masses, stones, or hydronephrosis. Bowel: Normal appendix. Colonic diverticulosis without diverticulitis. Normal small bowel. Peritoneum/Retroperitoneum: No masses, pneumoperitoneum, or fluid. Lymph Nodes: No lymphadenopathy. Pelvic Organs/Bladder: No mass. Mild prostatomegaly. Partially distended urinary bladder. Vessels: Aortic atherosclerosis. No aortic aneurysm. Bones/Soft Tissues: Degenerative changes of the spine. A small fat-containing left inguinal hernia. Procedure Note Darren Bermudez MBBS - 01/04/2025 CT ABDOMEN/PELVIS WITH CONTRAST Referring clinician's provided indication for this examination in Epic: *Hematuria, unknown cause TECHNIQUE: Multidetector-row CT of the abdomen and pelvis was performedafter administration of intravenous contrast using tailored dosemodulation techniques. Images were reconstructed in the axial, coronal,and sagittal planes. COMPARISON: None available. FINDINGS: Lower Chest: No consolidation or pleural effusions. Mild circumferentialwall thickening of the distal esophagus. Liver: No focal lesions. Biliary: Normal gallbladder. No biliary ductal dilatation. Spleen: No splenomegaly or focal lesions. Pancreas: No ductal dilatation. There is a 1.2 cm hypodensity in thepancreatic body likely a side branch IPMN Adrenal Glands: No nodules. Kidneys/Ureters: Hypodense lesions in bilateral kidneys, likely cysts. Nosolid masses, stones, or hydronephrosis. Bowel: Normal appendix. Colonic diverticulosis without diverticulitis.Normal small bowel. Peritoneum/Retroperitoneum: No masses, pneumoperitoneum, or fluid. Lymph Nodes: No lymphadenopathy. Pelvic Organs/Bladder: No mass. Mild prostatomegaly. Partially distendedurinary bladder. Vessels: Aortic atherosclerosis. No aortic aneurysm. Bones/Soft Tissues: Degenerative changes of the spine. A smallfat-containing left inguinal hernia. IMPRESSION: [ 1. No acute abnormality in the abdomen or pelvis. 2. Colonic Diverticulosis without Diverticulitis. 3. Mild Prostatomegaly. Moises Washington PA-C IMG CT ABD/PELVIS Final Result * LFTs (hepatic panel) (01/04/2025 12:08 PM EDT) ALKALINE PHOSPHATASE 53 39 - 117 U/L [facility] TOTAL BILIRUBIN 1.1 0.0 - 1.2 mg/dL [facility] DIRECT BILIRUBIN 0.2 0.0 - 0.2 mg/dL [facility] Bilirubin (Indirect) 0.9 0 - 1.5 mg/dL [facility] AST 18 0 - 37 U/L [facility] ALT 16 0 - 40 U/L [facility] TOTAL PROTEIN 7.5 6.5 - 8.0 g/dL [facility] ALBUMIN 4.6 3.9 - 4.8 g/dL [facility] GLOBULIN 2.9 1 - 4.8 g/dL [facility] A/G Ratio 1.59 1.00 - 4.80 RATIO [facility] Blood 01/04/2025 12:0 8 PM EDT 01/04/2025 12:22 PM EDT us Fausitno Lewis MD LAB BLOOD ORDERABLES Final Resul t Performing Organization Address City/State/[facility] [[email or web address]] Co de Phone Number [address] [address] * (ABNORMAL) CBC and differential (01/04/2025 12:08 PM EDT) WBC 6.86 4.00 - 11.00 K/uL [facility] RBC 5.67 4.50 - 5.90 M/uL [facility] HGB 17.8(H) 13.5 - 17.5 g/dL [facility] HCT 55.3(H) 41.0 - 53.0 % [facility] PLT 222 150 - 450 K/uL [facility] MCV 97.5 80.0 - 100.0 fL [facility] MCH 31.4(H) 27.0 - 31.0 pg [facility] MCHC 32.2 32.0 - 36.0 g/dL [facility] RDW 13.2 11.5 - 14.5 % [facility] MPV 8.8 8.4 - 12.0 fL [facility] NRBC 0.00 0.00 /100 WBCs [facility] ABSOLUTE NRBC 0.00 0.00 K/uL [facility] DIFF METHOD Auto [facility] NEUTS 53.5 48.0 - 76.0 % [facility] LYMPHS 34.1 18.0 - 41.0 % [facility] MONOS 9.3 4.0 - 11.0 % [facility] EOS 2.3 0.0 - 5.0 % [facility] BASOS 0.7 0.0 - 1.5 % [facility] Granulocytes, immature (%) 0.1 0.0 - 0.9 % [facility] ABSOLUTE NEUTS 3.66 1.92 - 7.60 K/uL [facility] ABSOLUTE LYMPHS 2.34 0.72 - 4.10 K/uL [facility] ABSOLUTE MONOS 0.64 0.16 - 1.10 K/uL [facility] ABSOLUTE EOS 0.16 0.00 - 0.50 K/uL [facility] ABSOLUTE BASOS 0.05 0.00 - 0.15 K/uL [facility] Granulocytes, immature 0.01 0.00 - 0.09 K/uL [facility] Blood 01/04/2025 12:0 8 PM EDT 01/04/2025 12:22 PM EDT us Faustino Lewis MD LAB BLOOD ORDERABLES Final Resul t [address] [address] * Lipase (01/04/2025 12:08 PM EDT) LIPASE 35 16 - 63 U/L [facility] Blood 01/04/2025 12:0 8 PM EDT 01/04/2025 12:22 PM EDT us Faustino Lewis MD LAB BLOOD ORDERABLES Final Resul t [address] [address] * (ABNORMAL) Basic metabolic panel (01/04/2025 12:08 PM EDT) SODIUM 141 133 - 146 mmol/L [facility] CHLORIDE 102 96 - 108 mmol/L [facility] POTASSIUM 4.1 3.3 - 5.1 mmol/L [facility] Comment:Specimen slightly he molyzed, result may be falsely elevated. CO2 26 21 - 35 mmol/L [facility] BUN 19 6 - 19 mg/dL [facility] CREATININE 0.90 0.5 - 1.5 mg/dL [facility] GLUCOSE 235(H) 70 - 99 mg/dL [facility] CALCIUM 10.2 8.4 - 10.3 mg/dL [facility] EGFR 86 >59 mL/min/1.7 3m2 [facility] Comment:Estimated glomerular filtration rate calculated using the CKD-EPI refit equation. ANION GAP 17 10 - 20 mmol/L [facility] Blood 01/04/2025 12:0 8 PM EDT 01/04/2025 12:22 PM EDT us Faustino Lewis MD LAB BLOOD ORDERABLES Final Resul t [facility] [address] [place] [address] * (ABNORMAL) Urinalysis w/reflex Urine Culture (01/04/2025 11:48 AM EDT) COLOR Red(A) Yellow [facility] CLARITY TURBID [facility] GLUCOSE 3+(A) Negative [facility] BILI 1+(A) Negative [facility] KETONES Trace(A) Negative [facility] SPECIFIC GRAVITY 1.020 1.005 - 1.030 [facility] BLOOD 3+(A) Negative [facility] PH 5.5 5.0 - 8.0 [facility] Protein-UA 2+(A) Negative [facility] NITRITE Positive(A) Negative [facility] Leukocyte esterase, ur Negative Negative [facility] Urine (Urine) 01/04/2025 11: 48 AM EDT 01/04/2025 12:10 PM EDT us Faustino Lewis MD URINE ORDERABLES Final Result Performing Organization Address [facility] [[email or web address]] Co de Phone Number [address] [address] * Urine Culture (01/04/2025 11:48 AM EDT) Special Requests None 01/04/2025 4:38 PM EDT [facility] Urine Culture NO GROWTH 48HRS 01/06/2025 8:37 AM EDT [facility] Urine 01/04/2025 11:4 8 AM EDT 01/04/2025 4:38 PM EDT us Moises Washington PA-C MICROBIOLOGY - GENERAL ORDERAB LES Final Result Performing Organization Address [facility] de Phone Number [address] [address] * (ABNORMAL) Urine sediment (01/04/2025 11:48 AM EDT) WBC 5-10(A) NONE SEEN /hpf [facility] RBC TOO NUMEROUS TO COUNT(A) NONE SEEN /hpf [facility] URINE EPITHELIAL 0-4(A) NONE SEEN [facility] MUCUS NONE SEEN NONE SEEN /hpf [facility] BACTERIA 1+(A) NONE SEEN /hpf [facility] 01/04/2025 11:4 8 AM EDT 01/04/2025 12:10 PM EDT us Faustino Lewis MD URINE ORDERABLES Final Result Performing Organization Address [facility] [[email or web address]] Co de Phone Number [address] [address] * (ABNORMAL) Lipid panel (01/13/2024 10:33 AM EDT) HDL 42 mg/dL [facility] Comment: Interpretation <40 mg/dL: Low HDL cholesterol (major risk factor for CHD) Greater than or equal to 60 mg/dL: High HDL cholesterol ( negative risk factor for CHD) HDL - cholesterol is affected by a number of factors, e.g. smoking, excerise, hormones, sex and age. CHOLESTEROL 138 0 - 240 mg/dL [facility] TRIGLYCERIDES 102 30 - 160 mg/dL [facility] LDL 76 50 - 129 mg/dL [facility] Comment: LDL levels in terms of risk for coronary heart disease: <100 mg/dL: Optimal 100-129 mg/dL: Near or above optimal 130-159 mg/dL: Borderline high 160-189 mg/dL: High >190 mg/dL: Very High CARDIAC RISK RATIO 3.3(L) 3.4 - 5.0 C [facility] Blood 01/13/2024 10:3 3 AM EDT 01/13/2024 10:36 AM EDT us Pio Hendrickson DO LAB BLOOD ORDERABLES Final Resul t [facility] [address] [place] [address] from Last 3 Months or Most Recently Relevant to Health Maintenance Insurance MEDICARE PART A & B [facility] MEDICARE SUPPLEMENT MEDICARE PART A & B Member Subscriber Plan / Payer (Ef fective 2009-Present) Name:Deshaun Rodriguez Member ID:[id number] Relation to Subscriber:Self Name:Deshaun Rodriguez Subscriber ID:[id number] Payer ID:[id number] Group ID:Not on file Type:Medicare Address: [employer] [address] [place] [phone] [employer] MEDICARE SUPPLEMENT MEDICARE PART A & B [employer] MEDICARE SUPPLEMENT MEDICARE PART A & B [facility] MEDICARE SUPPLEMENT MEDICARE PART A & B [facility] [employer] MEDICARE SUPPLEMENT MEDICARE PART A & B [facility] [employer] MEDICARE SUPPLEMENT MEDICARE PART A & B [employer] MEDICARE SUPPLEMENT MEDICARE PART A & B [employer] MEDICARE SUPPLEMENT MEDICARE PART A & B [facility] [employer] MEDICARE SUPPLEMENT Advance Directives For more information, please contact: [phone] (9AM - 5PM [facility], Saturday-Saturday) Documents on File Type Date Recorded Patient [employer] Expl anation Healthcare Proxy 08/29/2017 2:25 PM * Full Code (Latest Code Status on File) Date Activated Date Inactivated Comments 02/17/2020 5:42 PM Question Answer Comments Code Status Confirmed With: Patient * Full Code (Confirmed) Date Activated Date Inactivated Comments 12/18/2019 1:48 AM 02/17/2020 10:45 AM Question Answer Comments Code Status Confirmed With: Patient Code Status Communicated To: Inpatient Attending * Full Code (Confirmed) Date Activated Date Inactivated Comments 08/26/2017 4:51 PM 08/28/2017 6:58 PM Question Answer Comments Code Discussion Comments: patient Care Teams Broadcast Transmitter Operator Relationship Specialty Start Date End Date Pio Hendrickson DO [address] [place] [id number] [email or web address] PCP - General Internal Medicine 01/07/25 Additional Source Comments The information contained in this document represents components of the legal health record. It is not the complete legal health record.[facility]
--- OUTSIDE RECORDS SUMMARY | 2025-01-27 19:22 | XMS_ITS | Encounter Summary ---
Author Organization [facility] Address [address] [place] [phone] Phone Care Team Providers Care Dirt Supervisor Name Role Phone Pio Hendrickson DO Primary Care Provider [phone] Pio Hendrickson DO Primary Care Provider [phone] Encounter Details Date Type Department Care Team ([facility] st Contact Info) Description 03/12/2018 Ancillary Orders Virtual Department [address] [place] [address] Pio Hendrickson DO [address] [place] [address] [place] [address] [email or web address] Encounter for screening for cardiovascular disorders Social History Tobacco Use Types Packs/Day Years [...] Date Job End Date Retired, 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 on file Not on ivory e Not on file documented as of this encounter Plan of Treatment Not on file documented as of this encounter Visit Diagnoses Diagnosis Encounter for screening for cardiovascular disorders documented in this encounter Care Teams Dirt Supervisor Relationship Specialty Start Date End Date Pio Hendrickson DO [email or web address] PCP - General Internal Medicine 08/26/17 01/06/25 Pio Hendrickson DO [address] [place] [address] [email or web address] PCP - General Internal Medicine 01/07/25 documented as of this encounter Additional Source Comments The information contained in this document represents components of the legal health record. It is not the complete legal health record.[facility]
--- OUTSIDE RECORDS SUMMARY | 2025-01-27 19:22 | XMS_ITS | Encounter Summary ---
Author Organization [facility] Address [address] [place] [phone] Phone Care Team Providers Care Protection Consultant Name Role Phone Pio Hendrickson DO Primary Care Provider [phone] Pio Hendrickson DO Primary Care Provider [phone] Encounter Details Date Type Department Care Team (Latest Contact Info) Description 10/20/2019 Transcribe Orders Virtual Department [address] [place] [phone] Alexandra Villarreal PA [address] [facility] [place] [address] [place] [address] Syncope and collapse (Primary Dx) Social History Tobacco Use Types [...] Date Job End Date Retired, 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 There were over 2 hours of atrial fibrillation. In atrial fibrillation the rate was slow ranging between 69 and 84 bpm. There was rare ventricular ectopy isolated PVCs. There was an episode of 19 beats of what appears to be either nonsustained ventricular tachycardia versus atrial tachycardia with aberrancy. The rate was 174 bpm. Conclusion: Monitor notable for paroxysmal atrial fibrillation. There was also a 19 beat run of either nonsustained ventricular tachycardia versus SVT with aberrancy. Alexandra ROSA [facility] ORDERAB LES Final Result documented in this encounter Visit Diagnoses Diagnosis Syncope and collapse- Primary Syncope and collapse documented in this encounter Care Teams Protection Consultant Relationship Specialty Start Date End Date Pio Hendrickson DO PCP - General Internal Medicine 08/26/17 01/06/25 Pio Hendrickson DO [address] [place] [address] PCP - General Internal Medicine 01/07/25 documented as of this encounter Additional Source Comments The information contained in this document represents components of the legal health record. It is not the complete legal health record.[facility]
--- OUTSIDE RECORDS SUMMARY | 2025-01-27 19:22 | XMS_ITS | Encounter Summary ---
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 e Not on file documented as of this encounter Plan of Treatment Not on file documented as of this encounter Visit Diagnoses Not on filedocumented in this encounter Care Teams Manager Life Sciences Relationship Specialty Start Date End Date Pio Hendrickson DO [email or web address] PCP - General Internal Medicine 08/26/17 01/06/25 Pio Hendrickson DO [address] [place] [address] [email or web address] PCP - General Internal Medicine 01/07/25 documented as of this encounter Additional Source Comments The information contained in this document represents components of the legal health record. It is not the complete legal health record.[facility]
[2025-01-27 19:37] LABS: Appearance Urine Clear; Glucose Urine UA >=1000 mg/dL (Negative); PH 5.5 (5.0-9.0); Specific Gravity - Urine >= 1.030 (1.005-1.025); UMIC TRIGGER UACC YES
== END 2025-01-27 19:20 | disposition home or self-care (01) ==
LOC: HO.LNP 19:19
PROVIDERS: Visit Provider Internal Medicine
DX: R31.0 Gross hematuria (principal)
CPT/HCPCS: 81001; 88112